=== PATIENT | male | born 1945 | race Caucasian/White ===

== ENCOUNTER 2019-03-04 23:29 | Inpatient (IN) ==
--- NOTE | 2019-03-05 00:10 | EKG Report ---
Test Performed on : 03/05/2019 00:07:09 AM Test Reason : Stroke like symptoms Blood Pressure : / mmHG Vent. Rate : 041 BPM Atrial Rate : 041 BPM P-R Int : 152 ms QRS Dur : 132 ms QT Int : 570 ms P-R-T Axes : 025 051 022 degrees QTc Int : 470 ms Marked sinus bradycardia. Right bundle branch block Abnormal ECG No previous ECGs available Unconfirmed Result
[2019-03-05 00:29] LABS: BASO# 0.04 X1000 (0.0-0.2); BASO% 0.5 % (0.0-0.8); EOS# 0.45 X1000 (0.0-0.7); EOS% 5.2 % (0.0-10.0); HEMATOCRIT 42.8 % (42.0-52.0); HEMOGLOBIN 14.4 g/dL (14.0-18.0); IMM GRAN# 0.02 X1000 (0.0-0.04); IMM GRAN% 0.2 % (0.0-0.5); LYMPH# 2.12 X1000 (1.2-3.4); LYMPH% 24.7 % (20.5-51.1); MCH 30.8 PG (27-31); MCHC 33.6 g/dL (33-37); MCV 91.6 FL (81-99); MONO# 0.68 X1000 (0.11-0.59); MONO% 7.9 % (1.7-9.3); MPV 10.7 FL (7.4-10.4); NEUT# 5.29 X1000 (1.4-6.5); NEUT% 61.5 % (42.2-75.2); PLT 181 X1000 (130-400); RBC 4.67 XMIL (4.7-6.1); RDW 13.3 % (11.5-14.5)
[2019-03-05 00:46] LABS: URINE SOURCE CLEAN CATCH
[2019-03-05 00:51] LABS: AGAP 13; ALB/GLOB RATIO 1.3; ALBUMIN 4.2 g/dL (3.5-5.0); ALKALINE PHOSPHATASE 74 U/L (32-122); BUN 17 mg/dL (8-22); CALCIUM 9.6 mg/dL (8.8-10.2); CHLORIDE 101 mmol/L (98-107); COSMO 280; ESTIMATED GFR > 60; GLUCOSE 84 mg/dL (70-104); GOT 19 U/L (10-34); GPT 13 U/L (10-44); POTASSIUM 4.5 mmol/L (3.5-5.1); SODIUM 140 mmol/L (136-145); TCO2 26 mmol/L (25-35); TOTAL BILIRUBIN 0.25 mg/dL (0.20-1.00); TOTAL PROTEIN 7.5 g/dL (6.3-8.3)
[2019-03-05 00:57] LABS: BILIRUBIN URINE NEGATIVE (NEGATIVE); BLOOD URINE NEGATIVE (NEGATIVE); COLOR STRAW; GLUCOSE URINE NEGATIVE (NEGATIVE); KETONE URINE NEGATIVE (NEGATIVE); LEUKOCYTES URINE NEGATIVE (NEGATIVE); NITRITE URINE NEGATIVE (NEGATIVE); PROTEIN URINE 30 mg/dL (NEGATIVE); TURBIDITY URINE CLEAR (CLEAR); UR EPITHELIAL CELLS <10 /HPF (<10); URINE BACTERIA NEGATIVE /HPF; URINE RBC <10 /HPF (<10); URINE WBC <10 /HPF (<10); UROBILINOGEN URINE NORMAL (NORMAL)
[2019-03-05 00:58] LABS: UR AMPHETAMINES QUAL NONE DETECTED (NONE DETECT); UR BARBITUATES QUAL NONE DETECTED (NONE DETECT); UR BENZODIAZEPIN QUAL NONE DETECTED (NONE DETECT); UR CANNABINOIDS QUAL NONE DETECTED (NONE DETECT); UR COCAINE QUAL NONE DETECTED (NONE DETECT); UR METHADONE QUAL NONE DETECTED (NONE DETECT); UR OPIATES QUAL NONE DETECTED (NONE DETECT); UR OXYCODONE QUAL NONE DETECTED (NONE DETECT); UR PCP QUAL NONE DETECTED (NONE DETECT)
[2019-03-05 00:59] LABS: INR 0.94; PROTIME 12.6 Seconds (11.0-16.0)
--- NOTE | 2019-03-05 02:13 | PROVIDER DOCUMENTATION ---
This chart was entered by Katherine Torres Scribe, acting as scribe for Tex Oliveira MD. HPI-Neurological Disorder - General Chief Complaint: Stroke-Like Symptoms Stated Complaint: CHEST PAIN Time Seen by Provider: 03/04/19 23:37 Source: patient Allergies/Adverse Reactions: Patient Allergies Allergy/AdvReac Type Severity Reaction Status Date / Time No Known Allergies Allergy Verified 03/05/19 00:20 Home Medications: Home Medication List Medication Instructions Recorded Confirmed Last Taken Type Amlodipine [Norvasc] 5 mg PO DAILY 03/05/19 03/05/19 03/04/19 History Aspirin [Aspir-Low] 81 mg PO QAM 03/05/19 03/05/19 03/04/19 History Bisoprolol Fumarate/Hctz 0.5 tab PO DAILY 03/05/19 03/05/19 03/04/19 History [Bisoprolol-Hctz 5-6.25 mg Tab] Clonidine [Catapres] 0.5 tab PO HS 03/05/19 03/05/19 03/04/19 History Clopidogrel Bisulfate [Plavix] 75 mg PO WLUNCH 03/05/19 03/05/19 03/04/19 History Glipizide [Glipizide Xl] 5 mg PO DAILY 03/05/19 03/05/19 03/04/19 History Rosuvastatin Calcium [Crestor] 5 mg PO QHS 03/05/19 03/05/19 03/03/19 History - History of Present Illness-Neuro Nature of Presenting Problem: pt is a 73 yr old male presenting with left arm numbness onset 1629, pt reports onset upon waking from afternoon nap.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 pt denies headache, chest pain or shortness of breath. pt does report intermittent episodes of dizziness, last was 2 weeks ago, cleared after taking meclazine, hx of vertigo Severity: reports: moderate Onset/Duration: reports: this afternoon (1629) Timing: reports: still present, changing over time Context: reports: impaired speech Character of Altered Mental Status: reports: N/A Any recent trauma/injury?: reports: none Character of Deficits: reports: altered sensation (left arm, left leg), impaired speech New weakness or altered sensation location:: reports: LUE, LLE Cognitive Baseline: alert, oriented x3 Gait Baseline: walks without assistance Associated Symptoms: denies: headache, decreased ability to walk or stand, fever/chills, numbness in legs/feet, vision changes, weakness Similar Symptoms Previously?: No Recently seen or treated by another doctor?: No Review of Systems - Adult - REVIEW OF SYSTEMS - ADULT Constitutional: denies: chills, fever Eyes: denies: decreased vision, blurred vision, double vision Ears, Nose, Mouth & Throat: denies: ear pain, sinus problem, throat pain Cardiovascular: denies: chest pain, palpitations, syncope Respiratory: denies: cough, shortness of breath Gastrointestinal: denies: abdominal pain, diarrhea, nausea, vomiting Genitourinary: reports: no symptoms reported Musculoskeletal: denies: muscle aches, muscle weakness Integumentary: reports: no symptoms reported Neurological: reports: numbness (left arm, left leg). denies: dizziness/vertigo, headache/migraines, syncope Psychiatric: reports: no symptoms reported Endocrine: reports: no symptoms reported Hematologic/Lymphatic: reports: no symptoms reported Allergic/Immunologic: reports: no symptoms reported All Other Systems: Reviewed and Negative Past History - Adult - PAST MEDICAL HISTORY-ADULT Review of Records: reports: Nursing Assessment Review, Medications Reviewed, Social history reviewed & non-contributory. Major Childhood Illnesses: reports: denies history Cardiovascular: reports: denies history Respiratory: reports: denies history Gastrointestinal: reports: denies history Obstetrical/Gynecological: reports: denies history Genitourinary: reports: denies history Musculoskeletal: reports: denies history Neurological: reports: denies history Endocrine/Immune: reports: denies history Other Conditions: reports: denies history - IMMUNIZATION STATUS Childhood Immunizations: See Nurse Assessment Flu Vaccine: See Nurse Assessment - FAMILY HISTORY Family History: reviewed, not pertinent - SOCIAL HISTORY Living Situation: family Physical Exam- Neurological - Physical Exam-Neuro Initial Vital Signs Reviewed: Yes General Appearance: alert, no apparent distress Eye Exam: bilateral eye: normal inspection, PERRL HENMT: normocephalic/atraumatic, moist mucous membranes, normal ENT inspection Head Injury: no evidence of injury Neck: non-tender, full range of motion, supple, normal inspection Respiratory: chest non-tender, lungs clear, normal breath sounds Cardiovascular: normal peripheral pulses, no edema, bradycardia Abdominal Exam: normal bowel sounds, non tender, soft Lymphatic: no adenopathy Peripheral Pulses: radial (R): 2+, radial (L): 2+ Extremity: normal range of motion, non-tender, normal gait, 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 negative: sensory deficit, weak motor strength LUE, weak motor strength LLE Neurologic: bead preparer II-XII nml as tested, no motor/sensory deficits. negative: motor weakness, sensory deficit Integumentary: normal color, normal turgor, warm/dry Psych/Mental Status: normal mood/affect - Glascow Coma Scale Best Eye Response: (4) open spontaneously Best Verbal Response: (5) oriented Best Motor Response: (6) obeys commands Total Glascow Score: 15 Progress - PLAN OF CARE/RESULTS Progress/Plan/Lab Results: Vital Signs - 8 hr 03/04/19 23:31 03/04/19 23:53 03/05/19 00:01 Temperature 97.9 F Pulse Rate 44 L 41 L Respiratory Rate 16 19 Blood Pressure 185/46 O2 Sat by Pulse Oximetry 95 97 96 03/05/19 00:08 03/05/19 00:16 03/05/19 00:31 Temperature Pulse Rate 46 L 42 L 42 L Respiratory Rate 28 H 24 21 Blood Pressure 157/63 O2 Sat by Pulse Oximetry 96 96 95 03/05/19 00:46 03/05/19 01:01 03/05/19 01:16 Temperature Pulse Rate 39 L 42 L 46 L Respiratory Rate 20 22 12 Blood Pressure O2 Sat by Pulse Oximetry 95 96 95 03/05/19 01:26 Temperature Pulse Rate 39 L Respiratory Rate 22 Blood Pressure 158/62 O2 Sat by Pulse Oximetry 95 Laboratory Results - last 24 hr 03/05/19 03/05/19 03/05/19 00:04 00:04 00:04 WBC 8.60 RBC 4.67 L Hgb 14.4 Hct 42.8 MCV 91.6 MCH 30.8 MCHC 33.6 RDW Std Deviation 13.3 Plt Count 181 MPV 10.7 H Immature Gran % (Auto) 0.2 Neut % (Auto) 61.5 Lymph % (Auto) 24.7 [place] % (Auto) 7.9 Eos % (Auto) 5.2 Baso % (Auto) 0.5 Immature Gran # (Auto) 0.02 Neut # (Auto) 5.29 Lymph # (Auto) 2.12 [place] # (Auto) 0.68 H Eos # (Auto) 0.45 Baso # (Auto) 0.04 PT 12.6 INR 0.94 PTT (Actin FS) 23.0 Sodium Potassium Chloride Carbon Dioxide Anion Gap BUN Creatinine Estimated GFR/1.73 m2 BUN/Creatinine Ratio Glucose POC Glucose Calculated Osmolality Calcium Total Bilirubin AST ALT Alkaline Phosphatase Troponin T < 0.010 Total Protein Albumin Globulin Albumin/Globulin Ratio Urine Source Urine Color Urine Turbidity Urine pH Ur Specific [place] Urine Protein Ur Glucose (Stick) Ur Ketones (Stick) Urine Blood Urine Nitrite Urine Bilirubin Urobilinogen Dipstick Urine Leukocytes Urine WBC (Auto) Urine RBC (Auto) U Epithel Cells (Auto) Urine Bacteria (Auto) Urine Opiates Screen Ur Oxycodone Screen Ur Methadone, Qual Ur Barbiturates Screen Ur Phencyclidine Scrn Ur Amphetamines Screen U Benzodiazepines Scrn Urine Cocaine Screen U Cannabinoids Screen 03/05/19 03/05/19 03/05/19 00:04 00:08 00:40 WBC RBC Hgb Hct MCV MCH MCHC RDW Std Deviation Plt Count MPV Immature Gran % (Auto) Neut % (Auto) Lymph % (Auto) [place] % (Auto) Eos % (Auto) Baso % (Auto) Immature Gran # (Auto) Neut # (Auto) Lymph # (Auto) [place] # (Auto) Eos # (Auto) Baso # (Auto) PT INR PTT (Actin FS) Sodium 140 Potassium 4.5 Chloride 101 Carbon Dioxide 26 Anion Gap 13 BUN 17 Creatinine 1.0 Estimated GFR/1.73 m2 > 60 BUN/Creatinine Ratio 17 Glucose 84 POC Glucose 76 Calculated Osmolality 280 Calcium 9.6 Total Bilirubin 0.25 AST 19 ALT 13 Alkaline Phosphatase 74 Troponin T Total Protein 7.5 Albumin 4.2 Globulin 3.3 Albumin/Globulin Ratio 1.3 Urine Source CLEAN CATCH Urine Color STRAW Urine Turbidity CLEAR Urine pH 6.0 Ur Specific [place] 1.010 Urine Protein 30 A Ur Glucose (Stick) NEGATIVE Ur Ketones (Stick) NEGATIVE Urine Blood NEGATIVE Urine Nitrite NEGATIVE Urine Bilirubin NEGATIVE Urobilinogen Dipstick NORMAL Urine Leukocytes NEGATIVE Urine WBC (Auto) <10 Urine RBC (Auto) <10 U Epithel Cells (Auto) <10 Urine Bacteria (Auto) NEGATIVE Urine Opiates Screen Ur Oxycodone Screen Ur Methadone, Qual Ur Barbiturates Screen Ur Phencyclidine Scrn Ur Amphetamines Screen U Benzodiazepines Scrn Urine Cocaine Screen U Cannabinoids Screen 03/05/19 00:40 WBC RBC Hgb Hct MCV MCH MCHC RDW Std Deviation Plt Count MPV Immature Gran % (Auto) Neut % (Auto) Lymph % (Auto) [place] % (Auto) Eos % (Auto) Baso % (Auto) Immature Gran # (Auto) Neut # (Auto) Lymph # (Auto) [place] # (Auto) Eos # (Auto) Baso # (Auto) PT INR PTT (Actin FS) Sodium Potassium Chloride Carbon Dioxide Anion Gap BUN Creatinine Estimated GFR/1.73 m2 BUN/Creatinine Ratio Glucose POC Glucose Calculated Osmolality Calcium Total Bilirubin AST ALT Alkaline Phosphatase Troponin T Total Protein Albumin Globulin Albumin/Globulin Ratio Urine Source Urine Color Urine Turbidity Urine pH Ur Specific [place] Urine Protein Ur Glucose (Stick) Ur Ketones (Stick) Urine Blood Urine Nitrite Urine Bilirubin Urobilinogen Dipstick Urine Leukocytes Urine WBC (Auto) Urine RBC (Auto) U Epithel Cells (Auto) Urine Bacteria (Auto) Urine Opiates Screen NONE DETECTED Ur Oxycodone Screen NONE DETECTED Ur Methadone, Qual NONE DETECTED Ur Barbiturates Screen NONE DETECTED Ur Phencyclidine Scrn NONE DETECTED Ur Amphetamines Screen NONE DETECTED U Benzodiazepines Scrn NONE DETECTED Urine Cocaine Screen NONE DETECTED U Cannabinoids Screen NONE DETECTED Orders Category Date Time Status Cardiac Monitoring DIRECTED Care 03/04/19 23:32 Active Finger Stick Blood Sugar (ED) DIRECTED Care 03/04/19 23:32 Active Misc. NRSG Communication Order DIRECTED Care 03/04/19 23:32 Active Saline Loc NOW Care 03/04/19 23:32 Active CHEST-PORTABLE [RAD] Stat Exams 03/04/19 23:[address] HEAD W/O CONTRAST [CT] Stat Exams 03/04/19 23:33 Taken CBC WITH ELECTRONIC DIFF [HEME] Stat Lab 03/05/19 00:04 Completed COMPREHENSIVE METABOLIC PANEL [CHEM] Stat Lab 03/05/19 00:04 Completed PROTIME WITH INR [COAG] Stat Lab 03/05/19 00:04 Completed PTT [COAG] Stat Lab 03/05/19 00:04 Completed TROPONIN T Stat Lab 03/05/19 00:04 Completed URINALYSIS W/POSS RFLX CULT [URINALYSIS] Stat Lab 03/05/19 00:40 Completed URINE DRUG SCREEN Stat Lab 03/05/19 00:40 Completed EKG [EKG] Stat Ther 03/04/19 23:32 Draft Transfer/Admit Order [TRANSFER] Routine Transfer 03/05/19 01:45 Ordered Result Diagrams: 03/05/19 00:04 03/05/19 00:04 - EKG 1 Time of EKG reading by physician:: 00:07 EKG Read and Signed by:: Tex Oliveira EKG Interpretation (*Must complete 3 of following elements*): Abnormal Rate: 41 Rhythm: marked sinus bradycardia Hernandez: normal QRS: RBB TX Interval: normal ST Wave: normal - CT/MRI 1 CT Study: Head Impression: Normal, See EMR Report - CONSULTS/PCP/HOSPITALIST Notification #1 *Consult/PCP/Hospitalist*: Dr Rosa Time Discussed: 01:45 Reason/Comments: discussed plan of care for pt admit Consult Disposition: Will see in ED, Admit Departure - Departure Date of Disposition Decision: 03/05/19 Time of Disposition Decision: 02:11 DIAGNOSIS: CVA (cerebral vascular accident), HTN (hypertension) Disposition: ADMITTED INPATIENT Certified Medical Emergency: Emergent Condition: Fair Referrals and Follow-Ups: None,PCP [Primary Care Provider] - - Critical Care Note This patient required my direct & personal management of CC.: No Attestation - Physician/ MINDA Attestation Patient care was provided by Advanced Practice Provider:: No The physician spent face to face time with patient:: Yes Advanced Practice Provider documentation review:: Supervising physician onsite and consulted in the evaluation and care of this patient. The physician did have a face to face encounter with the patient. - NIH Stroke Scale NIH Type: Initial Evaluation Level of Consciousness: 0-Alert LOC Questions (ask month and age): 0-Answers Both Correctly LOC Commands (ask to open & close eyes;make a fist, let go): 0-Obeys Both Co rrectly Best Gaze (horizontal eye movement): 0-Normal Visual (use finger movement, counting or visual threat): 0-No Visual Loss Facial Palsy (show teeth or raise eyebrows & close eyes tght: 0-Symmetrical Movement Motor Function-left arm: 1-Drift Motor Function-right arm: 0-Normal Motor Function-left le-Drift Motor Function-right le-Normal Limb Ataxia([id number], or heel to patricio): 0-No Ataxia Sensory(pin prick to face,arms,trunk,legs-compare side/side): 1-Mild to Moderate Decrease in Sensation Best Language(name item/read sentence.Ex-Down to Earth): 0-No Aphasia Dysarthria(Pt read words or say words Ex.Mama,Tip-Top,Thanks: 0-Normal Articulation Extinction and Inattention: 0-Normal This chart was documented by the indicated scribe, (Katherine Torres, Scribe) and accurately reflects the services I performed and decisions made by me, Tex Oliveira MD, as attested by the provider's signature.
--- NOTE | 2019-03-05 03:05 | HISTORY AND PHYSICAL ---
PRIMARY CARE PHYSICIAN: Dr. Díaz in [place]. CHIEF COMPLAINT: Slurred speech, left arm, left-sided weakness. HISTORY OF PRESENTING ILLNESS: A 73-year-old male with a history of coronary artery disease, hypertension, diabetes mellitus type 2, hyperlipidemia, who presented to emergency department with 2 days history of having initially some slurred speech and then left-sided weakness. Patient states that his left arm was numb. He was evaluated in the emergency department. He states his symptoms improved; however, due to his presenting symptoms, it was thought that he would need admission for further management. At the time of my examination, patient denied any headache, fever, chills, chest pain, shortness of breath, or any weight changes, but still complained of left arm numbness. PAST MEDICAL HISTORY: Includes coronary artery disease, hypertension, diabetes mellitus type 2, hyperlipidemia. PAST SURGICAL HISTORY: None. ALLERGIES: No known drug allergies. CURRENT MEDICATIONS: Amlodipine 5 mg p.o. daily, aspirin 81 mg p.o. daily, Lispro HCT 5/6.25 mg half tablet p.o. daily, clonidine 0.1 mg half tablet p.o. at bedtime, Plavix 75 mg p.o. daily, glipizide 5 mg p.o. daily, rosuvastatin 5 mg p.o. at bedtime. SOCIAL HISTORY: Fifty pack-years history of smoking. Denies any history of alcohol or illicit drug use. FAMILY HISTORY: Positive for coronary disease in father. REVIEW OF SYSTEMS: Fourteen point review of system as listed in HPI. Other systems negative. PHYSICAL EXAMINATION: GENERAL: Cooperative, friendly male. He is resting comfortably. VITAL SIGNS: Temperature 97.9 degrees, pulse 44, respiration 16, blood pressure 185/46. HEENT: Atraumatic, normocephalic. Extraocular movements intact. PERRLA. NECK: No masses. CHEST: Clear to auscultation. CARDIOVASCULAR: Regular rate and rhythm. ABDOMEN: Soft. Positive bowel sounds. EXTREMITIES: No edema. NEUROLOGIC: He is awake, alert, oriented x3.Speech is intact, Strength 5/5 all Ext GENITOURINARY: No bladder distention. SKIN: Warm. LABORATORIES AND STUDIES: WBCs 8.60, hemoglobin 14.4, hematocrit 42.8, platelets 181,000. Sodium 140, potassium 4.5, chloride 101, CO2 of 26, BUN is 17, creatinine is 1.0. Glucose is 84. Head CT was negative. ASSESSMENT: A 74-year-old male with a history of coronary artery disease, hypertension, diabetes mellitus type 2, who had presented to the emergency department with 2 days history of having slurred speech, left-sided weakness. He was evaluated in the emergency department. It was suspected possibly had a transient ischemic attack. Subsequently, he will require admission for further management assessment. 1. Suspected possible transient ischemic attack. Will need to rule out cerebrovascular accident. 2. Diabetes mellitus type 2. 3. Hypertension. PLAN: 1. We will admit patient to [facility]. 2. Continue with stroke workup. 3. We will check an MRI of the brain. 4. We will consult Neurology. 5. Monitor blood glucose, put patient on sliding scale insulin regimen. 6. We will monitor blood pressure and allow permissive hypotension. 7. Put patient on DVT prophylaxis, SCD's. 8. We will continue to follow and reassess, make further recommendation based on patient's clinical course. cc: Rylan Rosa MD MTDD
[2019-03-05] MEDS: HUMULIN R SUBQ SCH ×4 (06:12→20:57)
--- NOTE | 2019-03-05 06:42 | Diag Imaging Result Doc PS360 ---
CT HEAD W/O CONTRAST - 03/04/2019 INDICATION: STROKE COMPARISON: None FINDINGS: There is mild diffuse cerebral atrophy. There is mild periventricular white matter chronic microvascular ischemia. No intracranial mass or hemorrhage. The skull is intact. The sinuses, mastoids, and middle ears are clear. IMPRESSION: No acute process. This exam was performed using automated exposure control, adjustment of mA or kV according to patient size, and/or use of iterative reconstruction technique Electronically signed by Pillo Medina 03/05/2019 6:40 AM
--- NOTE | 2019-03-05 07:07 | Diag Imaging Result Doc PS360 ---
EXAM: CHEST-PORTABLE 03/04/2019 HISTORY: stroke like symptoms TECHNIQUE: AP portable at 2348 COMMENT: The heart size and pulmonary vascularity are within normal limits. There is some questionable increase in interstitial markings. There are no previous studies available for comparison. No focal consolidation is demonstrated. IMPRESSION: Questionable interstitial edema versus fibrosis. Electronically signed by Timothy Benjamin 03/05/2019 7:05 AM
[2019-03-05] MEDS ORDERED: APRESOLINE IV PRN (08:34)
[2019-03-05] MEDS ORDERED: NORVASC PO SCH (09:00)
[2019-03-05] MEDS ORDERED: GLUCOTROL XL PO SCH (09:00)
--- NOTE | 2019-03-05 09:04 | PROGRESS NOTE ---
DATE: 03/05/2019 SUBJECTIVE: This patient is resting comfortably in bed. He is still complaining of left upper extremity tingling sensation and numbness. He is not having slurred speech or weakness at the level of the lower extremities. We are going to allow high blood pressure but I will treat it if the blood pressure is higher than 200. His heart rate has been between 39 and 50 and as per the patient, he has been that way for a very long time. 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 We will get a carotid ultrasound, brain MRI and an echocardiogram. OBJECTIVE: Vital Signs: Temperature 98.5 degrees, pulse 40, respiratory rate 19, blood pressure 145/75, oxygen saturation 100% on room air. HEENT: Head normocephalic, no trauma. PERRLA. Neck: Supple. No JVD. No masses. Central trachea. Chest: Clear to auscultation. No wheezing. No rales. Cardiovascular: Regular rate and rhythm. Bradycardic. Abdomen: Soft, nontender, nondistended. No hepatosplenomegaly. Extremities: No edema, no clubbing, no cyanosis. Neurological: The patient is alert. He is oriented x3. No focal deficits but he is complaining of left upper extremity numbness and tingling. LABORATORY DATA: WBC 8.6, hemoglobin 14.4, hematocrit 42.8, platelet 181,000. Sodium 140, potassium 4.5, chloride 101, bicarbonate 26, BUN 17, creatinine 1, glucose 84, calcium 9.6. AST 19, ALT 13, alkaline phosphatase 74. Troponin negative x1. Urine toxicology negative. Urinalysis negative. ASSESSMENT AND PLAN: 1. Suspected possible transient ischemic attack versus a stroke. He is still having some tingling sensation and numbness at the level of the left upper extremity. His speech is clear. He is not having deficits at the level of the lower extremities. He never had these kinds of problems before. He has been on aspirin and Plavix due to his coronary artery disease with multiple stents. 2. Type 2 diabetes. I will hold the diabetes medication at this moment. He seems to be controlled. 3. Hypertension. I will allow permissive hypertension for this patient until we can rule out stroke. 4. History of coronary artery disease with multiple stents, aware. Continue with the same management, aspirin, Plavix, and statins. 5. Hyperlipidemia. Continue with statins. 6. Bradycardia. As per the patient, he has been bradycardic for a very long time and he knows that his heart rate has been even in the 30s at home. He has been discussing this with his heart doctor and the heart doctor suggested to decrease in half his blood pressure medication. I am assuming that he is talking about the bisoprolol hydrochlorothiazide. We will keep this patient in the PVC unit, we will get an MRI, carotid ultrasound and echocardiogram. We have requested an evaluation by Neurology Department as well. I will continue to monitor his heart rate since I am not giving him any beta-brissa today. cc: Cornelius Roa MD
[2019-03-05] MEDS: PLAVIX PO SCH (11:20)
[2019-03-05] MEDS: ASPIRIN EC PO SCH (11:20)
--- NOTE | 2019-03-05 14:47 | CONSULTATION ---
DATE OF CONSULTATION: 03/05/2019 NEUROLOGY CONSULTATION: Mr. Bella is 74 years old, and history suggests recent stroke. History from the patient is that he took a nap yesterday, woke noticing numbness in the left hand and forearm. He had difficulty holding things in his left hand. He could not hold a cup in the left hand. He rested for several hours and then noticed onset of numbness in the left leg. He gives inconsistent history regarding gait difficulty and specific left-sided weakness. His speech became slurred. There was no vision disturbance. He had some headache which was not worse than usual. He presented to the hospital. Over the last 24 hours, he reports gradual improvement, but still some numbness in the left hand. He reports having some dizziness lasting a day or 2 a few weeks ago. He reports having horizontal diplopia lasting an hour or 2 several days ago. He reports no prior focal neurologic event, no prior stroke, no prior significant head injury. PAST MEDICAL HISTORY: Past history is remarkable for cigarette smoking, peripheral artery disease, hypertension, dyslipidemia, diabetes mellitus. MEDICATIONS: He reports he had been taking his medicines as directed including aspirin and clopidogrel, amlodipine, bisoprolol/hydrochlorothiazide, clonidine, glipizide, rosuvastatin. DIAGNOSTIC DATA: Workup here includes lab showing blood sugar 106, nothing else remarkable on chemistry profile. Urine drug screen was all negative. Noncontrast CT of the head showed usual changes but nothing focal, no evidence of bleeding. Brain MRI is scheduled. I believe that carotid ultrasound and echocardiogram are planned and may have been done with reports pending. He has been afebrile. Initial systolic blood pressure was 180s, later 120s-170s range. Heart rate has ranged 30s to 50s. PHYSICAL EXAMINATION: On exam, Mr. Bella is awake, alert, attentive, appropriate, oriented. Speech is not dysarthric now. Language function is intact. Memory is good. Head and neck are unremarkable. Visual josé are full tested grossly by confrontational finger counting. Extraocular movements are full. The left nasolabial fold is a little bit less prominent than the right, but facial motility is good bilaterally. Gag is intact. Tongue is midline. He can hear. He guards and splints the left shoulder (he reports prior injury) and demonstrates good power proximally in the arms. He has good undercover cop bilaterally. I can overcome the triceps on the left, but not the right. I can overcome the left iliopsoas grading 4+/5. Strength is normal in the right leg. He did well on [id number] testing bilaterally. He reports good pinprick appreciation over the limbs. Proprioception is good at the great toe MTP joint bilaterally. Plantar response is silent bilaterally. I did not test his gait. Reflexes are trace at the ankles and 1+ at the wrists symmetrically. IMPRESSION: Minimal left hemiparesis on exam, history of onset approximately 24 hours ago with stable course and some improvement in that time. He has risk factors including age, dyslipidemia, hypertension, glucose intolerance, peripheral vascular disease, continued cigarette smoking. PLAN: Further plans will depend on the MRI report and on the carotid and echocardiogram reports. I encouraged him to quit smoking cigarettes and to make sure he takes his medicines as directed. For right now, I would continue cautious treatment of blood pressure and continue aggressive management of lipids and blood sugar. Further plans will depend on his test results. Thanks for asking Neurology to see Mr. Bella. cc: MD MIGNON Garvin III
--- NOTE | 2019-03-05 15:01 | Diag Imaging Result Doc PS360 ---
MRI BRAIN W/WO CONTRAST - 03/05/2019 INDICATION: stroke COMPARISON: Head CT 03/04/2019 FINDINGS: There is some stippled increased signal in the lizz centrally on the diffusion sequence. This appears to be true restricted diffusion. Air is also some hyperintense signal on the FLAIR sequences in this region. Otherwise, no intracranial mass or hemorrhage. There is moderately advanced cerebral white matter chronic microvascular disease. There is mild atrophy with some ventriculomegaly. No abnormal contrast enhancement. IMPRESSION: 1. Faint restricted diffusion in the central lizz white matter consistent with recent microvascular ischemia. 2. Elsewhere, there is significant chronic microvascular ischemia of the cerebral white matter, as well as mild ventriculomegaly and atrophy. Electronically signed by Pillo Medina 03/05/2019 2:59 PM
--- NOTE | 2019-03-05 15:41 | ECHO REPORT ---
ORDER DATE: 03/05/2019 INTERPRETING PHYSICIAN: Dr. Stone Walden ECHOCARDIOGRAPHIC MEASUREMENTS: 1. Interventricular septum: 1.0 cm. 2. Posterior wall: 1.0 cm. 3. Diastolic diameter: 3.9 cm. 4. Left atrium: 3.6 cm. 5. Aortic root: 3 cm. SUMMARY OF THE 2-DIMENSIONAL IMAGIN. Aortic valve leaflets are trileaflet, mildly sclerosed. 2. Mitral valve is normal. 3. Tricuspid valve is normal. 4. There is mitral annular calcification. 5. There is left atrial enlargement. 6. There is mild tricuspid regurgitation. Peak velocity across the tricuspid valve was less than 2 m/sec. 7. There is mild mitral regurgitation. 8. Peak velocity across the aortic valve less than 2 m/sec. By Doppler studies, there is no aortic stenosis or regurgitation. 9. Normal left ventricular cavity size. Estimated ejection fraction of 65%. 10. There is no pericardial effusion or obvious intracardiac mass or thrombus seen. cc: MD Cornelius Sosa MD
[2019-03-05] MEDS ORDERED: CRESTOR PO SCH (21:00)
[2019-03-05] MEDS ORDERED: CATAPRES PO SCH (21:00)
[2019-03-06] MEDS: HUMULIN R SUBQ SCH ×2 (06:34→12:50)
[2019-03-06 07:04] LABS: AGAP 13; BUN 17 mg/dL (8-22); CALCIUM 9.1 mg/dL (8.8-10.2); CHLORIDE 104 mmol/L (98-107); COSMO 285; CREATININE 0.9 mg/dL (0.7-1.2); ESTIMATED GFR > 60; GLUCOSE 112 mg/dL (70-104); POTASSIUM 3.9 mmol/L (3.5-5.1); SODIUM 142 mmol/L (136-145); TCO2 25 mmol/L (25-35)
[2019-03-06] MEDS: ASPIRIN EC PO SCH (08:52)
--- NOTE | 2019-03-06 08:54 | PROGRESS NOTE ---
DATE: 03/06/2019 SUBJECTIVE: This patient is resting comfortably in bed. Actually, he was sitting in bed getting his breakfast. Today, he is not having any symptoms. No weakness or numbness sensation at the level of the left upper extremity. His blood pressure has been mostly in the 130s and 140s. I added his amlodipine and his clonidine that he has been taking at home today. Also, I will continue with his hydrochlorothiazide, and it looks like he has been taking a low dose 6.25. I will stop the bisoprolol completely right now because of his heart rate, which has been mostly in the 30s and 40s. Also, I have requested an evaluation by Cardiology Department. OBJECTIVE: Vital Signs: Temperature 97.7 degrees, pulse 39, respiratory rate 18, blood pressure 142/55, and oxygen saturation 94% on room air. HEENT: Head normocephalic. No trauma. PERRLA. Neck: Supple. No JVD. No masses. Central trachea. Chest: Clear to auscultation. No wheezing. No rales. Abdomen: Soft, nontender, and nondistended. No hepatosplenomegaly. Extremities: No edema. No clubbing. No cyanosis. Cardiovascular: RRR. Bradycardic. Neurological: He is alert. He is oriented x3. I do not feel any focal deficits. LABORATORY: Sodium 142, potassium 3.9, chloride 104, bicarbonate 25, BUN 17, creatinine 0.9, glucose 112, and calcium 9.1. ASSESSMENT AND PLAN: 1. Recent stroke. MRI showed a faint restricted effusion in the central lizz, white matter consistent with recent microvascular ischemia. He presented with left upper extremity weakness, numbness, and tingling sensation, but these symptoms basically disappeared. He is feeling good today. Neurology Department is following this patient closely. Carotid ultrasound showed 40 to 59 percent stenosis. An echocardiogram looks fine with a good ejection fraction and no thrombus seen. Case has been discussed with the patient, and he seems to understand. We will try to control his blood pressure. He will need to continue treating his blood sugar which has been well controlled, and continue on rosuvastatin. I will wait for the final recommendation of Neurology Department. 2. Bradycardia. It is hard to say if this patient has been having symptomatic bradycardia. This patient states that sometimes he feels dizzy, but also he has been having low blood sugar at home so I am not sure if this dizziness is related to his diabetes or his heart rate. His doctor recommended to take just the half of the bisoprolol/hydrochlorothiazide pill. At some point, his doctor told him to take a quarter of that tablet. I have stopped his bisoprolol. I continued with hydrochlorothiazide. I have consulted Cardiology Department for recommendations. If this patient is good to go today, I will discharge him if Cardiology Department is okay with that. 3. Type 2 diabetes, controlled. Continue with his home medications. 4. Hypertension. I have placed this patient back on his home medications, except bisoprolol. Echocardiogram looks fine. 5. History of coronary artery disease with multiple stents aware. Echocardiogram looks fine. Continue with aspirin, Plavix and statin's. 6. This patient seems to be doing better. Probably, he can be discharged today if the Cardiology Department and Neurology Department are okay with that. cc: Cornelius Roa MD
[2019-03-06] MEDS ORDERED: HYDROCHLOROTHIAZIDE PO SCH (09:00)
[2019-03-06] MEDS ORDERED: GLUCOTROL PO SCH (09:00)
[2019-03-06 11:23] VITALS: BP 144/55
--- NOTE | 2019-03-06 12:40 | PROGRESS NOTE ---
DATE: 03/06/2019 LOCATION: Room 203. SUBJECTIVE: Mr. Bella reports continued improvement in the left arm weakness. He has not had a headache. He does not have any new complaints. He had been consistently bradycardic but heart rate was recorded 68 this morning. Wide pulse pressures continue. On my exam now at the bedside, he is awake and alert. Speech is not dysarthric. Visual josé are full. I can overcome the left triceps, grading 4/5. 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 I do not find any new neurologic deficit. I encouraged him to be very aggressive with management of his risk factors. There is report that carotid ultrasound shows moderate, probably not hemodynamically significant carotid stenosis bilaterally here. His report is that he had outpatient carotid study in [place] within the last month or so, and findings here seem to be similar. I told him to make sure he keeps followup with his primary clinic to monitor carotids and to follow his blood pressure and heart rate. I do not have any other suggestion from Neurology standpoint. Thank you for asking us to see Mr. Bella. cc: MD MIGNON Garvin III
[2019-03-06] MEDS: PLAVIX PO SCH (12:49)
--- NOTE | 2019-03-06 13:34 | CARDIOLOGY CONSULTATION ---
DATE: 03/06/2019 HISTORY OF PRESENT ILLNESS: The patient is a 74-year-old gentleman with history of coronary artery disease, stent placement in the past, diabetes, hypertension, presented to the emergency room with 2 days history of slurred speech and left-sided weakness. Patient had his left arm numbness as well. He was evaluated in the emergency room, subsequently admitted. Had an MRI scan as well as Neurology has been consulted. From a cardiac standpoint, he was noted to be bradycardiac and the heart rate going from in the 30s and his beta-blockers which he had been taking has been held. During his hospitalization, he did not complain of having any dizzy spells or any maría syncopal episodes. There was no maría syncopal episode prior to his admission with stroke-like symptoms. He is followed and has a has a geoscience laboratory technician in [place] and he has been seen regularly, has had evaluation in January this year with Holter monitoring and other tests, per patient's family that these tests were normal. PAST MEDICAL HISTORY: 1. Coronary artery disease. 2. Hypertension. 3. Diabetes. 4. Hyperlipidemia. HOME MEDICATIONS: Include amlodipine 5 mg a day, bisoprolol hydrochlorothiazide 6.25 one tablet daily, clonidine 0.1 mg at bedtime, bisoprolol 75, glipizide 5, atorvastatin 5, enteric- coated aspirin. ALLERGIES: He is not known to be allergic to any medication. SOCIAL HISTORY: He does not smoke. There is no history of alcohol abuse. PHYSICAL EXAMINATION: Vital Signs: Blood pressure was 144/55. Cardiovascular: First and second heart sounds were heard. There was no S3 gallop. Respiratory: Normal air entry. There are no crepitations or rhonchi. Abdomen: Soft, nontender. There was no guarding or rigidity. Bowel sounds were heard. Central nervous system: Alert, oriented, complained of mild weakness in his left upper extremity, and his lower extremity left side weakness has significantly improved. LABORATORY DATA: Testing revealed a sodium 142, potassium 3.9, BUN 17, creatinine 0.9. TSH was 3.17. WBC 8.6, hemoglobin 14.4, hematocrit 42, platelet count of 181,000. IMAGIN. Brain MRI was done which revealed faint restricted diffusion in the central lizz white matter consistent with recent microvascular ischemia. 2. Echocardiogram revealed ejection fraction of 65%. ASSESSMENT AND PLAN: 1. Mr. Krish Shayne is a 74-year-old gentleman with known history of coronary artery disease, stent placement, hypertension, diabetes, hyperlipidemia, is admitted with left-sided weakness and cerebrovascular accident. From a cardiac standpoint, he has been noted to have bradycardia and his pulse rate ranging from 28 beats sinus bradycardia to 44 beats per minute. His beta-blockers has been held as a result of this. The maximum bradycardia was 2.5 seconds. The patient has been asymptomatic. The patient states that he has had Holter monitoring and other tests done with his geoscience laboratory technician in [place]. He is asymptomatic at the present time. I have advised him to follow up with his geoscience laboratory technician, and he may need other testing with Holter monitoring or ILR to make sure that he has not had any atrial fibrillation to account for his cerebrovascular accident, or significant sofia arrhythmias. At the present time, his beta-blockers have been held. The patient will make appointments to see his geoscience laboratory technician in [place]. 2. Hypertension. Continue with his current medications. He is on aspirin and Plavix. I have not recommended any changes. 3. As far as the stroke is concerned, he is being evaluated by Dr. Nina, neurologist. cc: Stone Walden MD [facility]
--- NOTE | 2019-03-07 08:26 | DISCHARGE SUMMARY ---
ADMISSION DATE: 03/05/2019 DISCHARGE DATE: 03/06/2019 DISCHARGE DIAGNOSES: 1. Recent stroke. MRI showed a recent microvascular ischemia at the level of the central lizz, white matter. 2. Asymptomatic bradycardia. 3. Type 2 diabetes. 4. Hypertension. 5. History of coronary artery disease with multiple stents. PROCEDURES PERFORMED: 1. Chest x-ray dated 03/04/2019. Impression: Questionable interstitial edema versus fibrosis. 2. Head CT scan dated 03/04/2019. Impression: No acute process. 3. Echocardiogram dated 03/05/2019. Impression: Normal left ventricular cavitary size and ejection fraction of 65%. There is a mitral annular calcification. There is a left atrial enlargement. There is mild tricuspid regurgitation, no obvious intracardiac mass or thrombus seen. 4. Brain MRI dated 03/05/2019. Impression: Faint restricted effusion in the central lizz, white matter consistent with recent microvascular ischemia. Elsewhere, there is significant chronic microvascular ischemia of the central white matter as well as mild ventriculomegaly and atrophy. CONSULTATIONS: 1. Neurology Department, Dr. Nina. 2. Cardiology Department, Dr. Walden. HOSPITAL COURSE: This is a 73-year-old male with a past medical history of coronary artery disease with stents, hypertension, diabetes, and hyperlipidemia presented to the emergency department with 2-day history of having some slurred speech and then left-sided weakness. As per the patient, his left arm was numb. He was evaluated in the emergency department. He states that the symptoms improved almost completely, however, due to his presenting symptoms it was thought that he would need admission for further management. At the moment of the medical examination and at the moment of admission, the patient denied any headache, fever, chills, sweats, chest pain, shortness of breath or any weight changes, but he is still complaining of left arm numbness and tingling sensation. He was transferred to the PVC unit. An MRI was done that showed a faint restricted effusion in the central lizz, white matter consistent with recent microvascular ischemia, but also showed significant chronic microvascular ischemia of the cerebral white matter as well as mild ventriculomegaly and atrophy. It has been noted that this patient's blood sugar at some opportunities was as low as 70s and 80s. I told the patient to be cautious with his treatment with glipizide, which can cause hypoglycemia. Actually, this patient told me that sometimes he gets hypoglycemic and he needs to drink or eat something for that. He has been having dizziness, and he has been taking medication for dizziness. He does not know exactly what is causing his dizziness. It could be related to his heart rate which has been always low mostly in between the 30s and 40s, but apparently this is a chronic issue. Also, it could be related to his multiple strokes and/or hypoglycemia. All of this has been explained to the patient. Neurology Department evaluated this patient. He states that he needs to continue with his treatment, and control his blood pressure and diabetes, and actually his risk factors. He seems to understand. Also, I contacted Cardiology Department who evaluated this patient and since this is a chronic condition and he was basically asymptomatic, they have decided to let him go but stop the beta blockers. I talked to the family and he has now an appointment with his social insurance specialist next Sunday in 4 days. All of this situation has been explained to the patient, and the family members at the bedside including his and daughter, and they all seem to understand. At the moment of discharge, the patient was basically asymptomatic. PHYSICAL EXAMINATION: Vital Signs: Temperature 98.3 degrees, pulse 68, respiratory rate 15, blood pressure 144/55, and oxygen saturation 94% on room air. HEENT: Head normocephalic. No trauma. PERRLA. Neck: Supple. No JVD. No masses. Central trachea. Chest: Clear to auscultation. No wheezing. No rales. Abdomen: Soft, nontender, and nondistended. No hepatosplenomegaly. Extremities: No edema. No clubbing. No cyanosis. Neurological: The patient is alert and oriented x3. No focal deficits. LABORATORY: Sodium 142, potassium 3.9, chloride 104, bicarbonate 25, BUN 17, creatinine 0.9, glucose 112, and calcium 9.1. DISCHARGE MEDICATIONS: Basically, I will continue with his home medications, except that I will stop the bisoprolol. 1. Amlodipine 5 mg p.o. daily. 2. Aspirin 81 mg p.o. every morning. 3. Clonidine 0.5 mg tablet p.o. at bedtime. 4. Plavix 75 mg p.o. with lunch. 5. Glipizide 5 mg p.o. daily. 6. Hydrochlorothiazide 6.25 mg p.o. daily. 7. Crestor 5 mg p.o. at bedtime. TIME SPENT: Time discharging this patient 30 minutes. cc: Cornelius Roa MD
--- NOTE | 2019-03-07 17:13 | Carotid Study ---
DATE: 03/05/2019 REFERRING PHYSICIAN: Dr. Rosa. READING PHYSICIAN: Dr. Ward. SENIOR BIOSTATISTICIAN/GROUP LEADER: Fifi . INDICATION: TIA. FINDINGS: There is mild calcific plaque at the takeoff of the right internal carotid artery without turbulent flow or elevated velocity. There is an ulcerative plaque in the proximal left internal carotid artery however there are no elevated velocities or turbulent flow. There is antegrade vertebral flow bilaterally. INTERPRETATION: There is mild plaque disease bilaterally with regards to degree of stenosis. However the left plaque does appear to be ulcerative and I would recommend further vascular followup. There is plaque at the takeoff the right internal carotid artery which does produce some moderate degree of elevated velocity and turbulent flow. There is an ulcerative plaque in the left internal carotid artery, it likewise also produces a moderate degree of increased velocity. There is antegrade vertebral flow bilaterally. Percent stenosis 40 to 59 percent bilaterally INTERPRETATION: Plaque disease as described above which is perhaps somewhat more concerning on the left side although not hemodynamically significant at this time. Further followup with vascular surgeon is recommended for surveillance and evaluation of this lesion. cc: MD Rylan Iqbal MD
== END 2019-03-06 14:51 | disposition home or self-care (01) | DRG 65 ==
LOC: ED 23:29 → SUATTDRO 03-05 02:24 → 2N 03-05 02:24
PROVIDERS: ATTEND Internal Medicine